=== PATIENT | male | born 2000 | race Caucasian/White ===

== ENCOUNTER 2024-02-22 12:55 | Emergency (ER) | payer MEDICARE, SELFPAY ==
[2024-02-22 13:16] VITALS: BP 133/87
--- NOTE | 2024-02-22 13:37 | ED.PDOC.TR ---
ED Provider Triage
-
Patient seen by provider in Triage?: Seen in Triage
23-year-old male with past medical history of cannabis use frequent cannabinoid hyperemesis syndrome. He claims this feels similar to previous episodes. Has been vomiting over the past few days not able to keep anything down today. Previously has
required IV medications to conclude these episodes. Still is consuming marijuana. Here patient is retching during initial triage assessment. No specific focal abdominal pain. Patient would likely benefit from IV medications for this was written
for initial treatments as well as labs.
--- NOTE | 2024-02-22 14:21 | ED.GENMED ---
History of Present Illness
<Katiuska Mcgarry PA-C - Last Filed: 02/22/24 19:04>
General
Chief Complaint: Abdominal Symptoms
Source: patient
Exam Limitations: none
Time Seen by Provider: 02/22/24 14:21
Nursing documentation reviewed up to this point in time: agreed with
Travel History
Have you had any contact with someone who has COVID-19?: No
Do you have any symptoms of coronavirus? Fever > 100 degrees, chills, cough, shortness of breath, sore throat, loss of taste or smell, muscle aches, or headache?: No
History of Present Illness
History of Present Illness:
23 y/o male with PMH of cannabinoid hyperemesis syndrome, right inguinal hernia presenting emergency department today with concerns of diffuse abdominal pain nausea and vomiting for the past 3 days. Patient present in room with girlfriend. Patient
reports that he is currently having active and avoid hyperemesis syndrome and states that how he feels right now feels exactly how he felt in the past when he had similar symptoms. Patient denies any diarrhea constipation. Patient denies any pain
in his groin, patient denies any urinary symptoms. Patient denies any fevers or chills. Other than right inguinal hernia repair, patient denies any other history of abdominal surgeries. Patient denies any chest pain or shortness of breath.
Patient states that the last time he smoked was this morning and that he is a daily marijuana user. Patient states that he stepped in a cycle where he will become more symptomatic if he does not smoke and smoking will relieve that same time seem to
make his symptoms worse. Patient states that he has been to the emergency department multiple times at [facility] for this and he will receive antiemetics and fluids and then go home.
Patient was evaluated in triage and initially given a dose of Haldol and IV fluids along with Benadryl. Patient states that he still feels persistent nausea despite this but patient is no longer dry heaving.
Review of Systems
<Katiuska Mcgarry PA-C - Last Filed: 02/22/24 19:04>
Review of Systems
All Other Systems: ROS reviewed and negative except as documented in HPI and ROS
Phy Exam
<Katiuska Mcgarry PA-C - Last Filed: 02/22/24 19:04>
Physical Exam
Physical Exam:
General: Patient is well appearing and in no acute distress; non-toxic.
Skin: Warm and dry, no rashes or lesions
Head: Normocephalic, atraumatic
Eyes: Sclera non-icteric. EOMs intact. PERRLA.
Cardiac: Regular rate and rhythm, no murmurs
Peripheral Vascular: Lower extremity swelling
Pulm: Normal respiratory effort, no wheezes, rales, rhonchi
Abdomen: Patient states that he has some mild tenderness when I palpate in his upper abdomen but no rebound tenderness, no guarding, no palpable masses
Neuro: CN II-XII intact, no focal neurologic deficits.
Psychiatric: Appropriate mood and affect.
Course
<NOEL Gomez Last Filed: 02/22/24 19:04>
Orders/Labs/Results
Orders:
Orders
02/22/24 13:15
EKG [Electrocardiogram (*1)] Urgent
Reason for Study: Chest Pain
0.9% Sodium Chloride 1000 ml [Nss] 1,000 ml IV BOLUS
Diphenhydramine [Benadryl] 25 mg IV NOW STA
Haloperidol Lactate [Haldol] 2 mg IV NOW STA
02/22/24 13:16
EKG- Treatment ONCE
02/22/24 14:20
Complete Blood Count/With Diff Urgent
Comprehensive Metabolic Panel Urgent
Lactic Acid Urgent
Lipase Urgent
02/22/24 15:15
Lorazepam [Ativan] 1 mg IV NOW STA
Ondansetron Injectable [Zofran] 4 mg IV NOW STA
Pantoprazole [Protonix IV] 40 mg IV NOW STA
02/22/24 15:16
Add On- LAB Urgent
Tests Added?: urine drug screen
02/22/24 15:22
Urine Drug Abuse Screen Urgent
Abnormal Lab Results
02/22/24
14:20
MCH 31.9 H pg
(27.0-31.0)
RDW 11.4 L %
(11.5-14.5)
Absolute Neuts (auto) 7.3 H 10^3/uL
(1.4-6.5)
Absolute Lymphs (auto) 0.5 L 10^3/uL
(1.2-3.4)
Neutrophils % 88.3 H %
(42.2-75.2)
Lymphocytes % 6.3 L %
(20.5-51.1)
Glucose 146 H mg/dl
(70-99)
Lactic Acid 2.1 H mmol/L
(0.7-2.0)
Albumin 5.1 H g/dl
(3.5-5.0)
02/22/24 14:20
02/22/24 14:20
Vital Signs
Initial and Last Documented VS:
Initial Vital Signs
Temp Pulse Resp BP Pulse Ox
98.4 F 66 18 133/87 98
02/22/24 13:16 02/22/24 13:16 02/22/24 13:16 02/22/24 13:16 02/22/24 13:16
Last Documented Vital Signs
Temp Pulse Resp BP Pulse Ox
98.4 F 86 15 112/59 99
02/22/24 13:16 02/22/24 16:00 02/22/24 16:00 02/22/24 16:00 02/22/24 16:00
<Hay Love MD - Last Filed: 02/22/24 17:09>
Orders/Labs/Results
Orders:
Orders
02/22/24 13:15
EKG [Electrocardiogram (*1)] Urgent
Reason for Study: Chest Pain
0.9% Sodium Chloride 1000 ml [Nss] 1,000 ml IV BOLUS
Diphenhydramine [Benadryl] 25 mg IV NOW STA
Haloperidol Lactate [Haldol] 2 mg IV NOW STA
02/22/24 13:16
EKG- Treatment ONCE
02/22/24 14:20
Complete Blood Count/With Diff Urgent
Comprehensive Metabolic Panel Urgent
Lactic Acid Urgent
Lipase Urgent
02/22/24 15:15
Lorazepam [Ativan] 1 mg IV NOW STA
Ondansetron Injectable [Zofran] 4 mg IV NOW STA
Pantoprazole [Protonix IV] 40 mg IV NOW STA
02/22/24 15:16
Add On- LAB Urgent
Tests Added?: urine drug screen
02/22/24 15:22
Urine Drug Abuse Screen Urgent
Abnormal Lab Results
02/22/24
14:20
MCH 31.9 H pg
(27.0-31.0)
RDW 11.4 L %
(11.5-14.5)
Absolute Neuts (auto) 7.3 H 10^3/uL
(1.4-6.5)
Absolute Lymphs (auto) 0.5 L 10^3/uL
(1.2-3.4)
Neutrophils % 88.3 H %
(42.2-75.2)
Lymphocytes % 6.3 L %
(20.5-51.1)
Glucose 146 H mg/dl
(70-99)
Lactic Acid 2.1 H mmol/L
(0.7-2.0)
Albumin 5.1 H g/dl
(3.5-5.0)
02/22/24 14:20
02/22/24 14:20
Vital Signs
Initial and Last Documented VS:
Initial Vital Signs
Temp Pulse Resp BP Pulse Ox
98.4 F 66 18 133/87 98
02/22/24 13:16 02/22/24 13:16 02/22/24 13:16 02/22/24 13:16 02/22/24 13:16
Last Documented Vital Signs
Temp Pulse Resp BP Pulse Ox
98.4 F 86 15 112/59 99
02/22/24 13:16 02/22/24 16:00 02/22/24 16:00 02/22/24 16:00 02/22/24 16:00
<NOEL Gomez Last Filed: 02/22/24 19:04>
MDM/Problems Addressed
Differential Diagnosis Includes:
Differentials include complete hyperemesis syndrome, gastroenteritis, gastritis, duodenitis,
MDM/Problems Addressed:
Abdominal pain, nausea, vomiting
Chronic conditions affecting care:
cannabinoid hyperemesis syndrome
Acute Exacerbation and/or Progression of Chronic Illness:
cannabinoid hyperemesis syndrome
<NOEL Gomez Last Filed: 02/22/24 19:04>
*Pulse Oximetry
Patient hypoxic: no
*EKG
Interpreted by ED Provider?: Yes
EKG Intrepretation Date: 02/22/24
Interpretation: abnormal
*Critical Care Note
Total Time (30-74mins, 75-104mins- exclusive of procedures): Not Applicable
Data Reviewed
Review of Other/Old Records Reveals: Records (No previous records in [facility] to review, no discharge summaries to review)
Source: patient
<NOEL Gomez Last Filed: 02/22/24 19:04>
Patient Management
Escalation/DeEscalation of care consider admission/obs:
23 y/o male with PMH of cannabinoid hyperemesis syndrome, right inguinal hernia presenting emergency department today with concerns of diffuse abdominal pain nausea and vomiting for the past 3 days. Patient states that how he feels now is
consistent with his previous episodes of cannabinoid hyperemesis syndrome. Patient states that he has a history of frequent ER visits for his condition. Patient was treated here in emergency department with IV fluids, Haldol, Zofran, Protonix, and
patient ultimately feels a lot better. Discussed marijuana cessation. No indication for CT of the abdomen pelvis. Patient stable for discharge.
ED Attending Note
<Katiuska Mcgarry PA-C - Last Filed: 02/22/24 19:04>
-
Portions of this chart may have been created with voice recognition software.� Occasional wrong word or��sound alike� substitutions may have occurred due to the inherent limitations of voice recognition software.
<Hay Love MD - Last Filed: 02/22/24 17:09>
ED Attending Note
Patient seen and examined by attending physician: Yes
ED Attending Note:
Patient presents to ED secondary to recurrent nausea, vomiting, and diarrhea over the past 3 days, after recent use of marijuana. Patient attempted to use marijuana this morning in hopes of alleviating his symptoms, which did not occur. Denies
fever or chills. Denies abdominal pain. Denies chest pain or shortness of breath. Denies trauma. Denies recent change in diet. Denies recent illness. Denies sick contact. Patient unfortunately has had number of similar symptoms in the past
secondary to marijuana use.
Physical Exam
General: mild distress, not acutely ill. afebrile.
Head: nc/at. eomi
Neck: supple. no meningeal signs.
Heart: s1/s2 regular rate and rhythm, no murmur. equal radial pulses.
Lungs: no acute respiratory distress. clear bilaterally
Abdomen: normal bowel sounds. not tender. no distention
Neuro: alert and oriented. no focal neurological deficits
Skin: no rash
Psychiatric: well kept. interactive and cooperative
Extremities: no edema. no calf tenderness.
Patient reports significant improvement symptoms after treatment, and without any further vomiting episodes after treatment. Patient feels comfortable going home at this time. Patient understands that he must stop using marijuana, as it is
triggering recurrent symptoms. Patient expresses understanding, at time of discharge, to the care of his girlfriend.
Discharge Plan
Departure
Patient Disposition: Home (Routine Discharge)
Date of Disposition: 02/22/24
Time of Disposition: 16:02
Patient with high blood pressure during this ER visit?: Yes
Discharge Problem:
Cannabinoid hyperemesis syndrome
Instructions: Nausea and vomiting in adults
Prescriptions:
New
ondansetron 4 mg Tablet,Disintegrating
4 mg PO TIDPRN Qty: 12 0RF
Referrals:
NONE,* [Family Provider] -
Stand Alone Forms: Return to Work
Activity Restrictions/Additional Instructions:
As discussed, please follow-up with your primary care physician with any further concerns. You must stop utilizing marijuana, as it likely is the culprit behind your recurrent symptoms.
Interventions
Interventions:
*Risk Screen - Suicide Last Done: 02/22/24 13:18
*General Assessment Last Done: 02/22/24 13:18
*Neglect/Abuse Screening Last Done: 02/22/24 13:18
ED- Fall Risk Assessment Last Done: 02/22/24 14:08
*ED COVID-19 Vaccine History Last Done: 02/22/24 14:08
*Nursing Disposition Last Done: 02/22/24 16:23
QS-Msbeqb-Okrcmcnuqq Assessment Last Done: 02/22/24 14:08
Discharge Date and Time
Discharge Date/Time: 02/22/24 16:20
Print Language: TURKMEN
[2024-02-22] MEDS: HALDOL 2 MG IV (14:24)
[2024-02-22] MEDS: NSS 1000 IV (14:25)
[2024-02-22] MEDS: BENADRYL 25 MG IV (14:25)
[2024-02-22 14:33] LABS: % Basophils 0.2 % (0-2); % Immature Granulocytes 0.5 % (0-0.5); % Lymphocytes 6.3 % (20.5-51.1); % Monocytes 4.7 % (1.7-9.3); % Neutrophils 88.3 % (42.2-75.2); Absolute Lymphocytes 0.5 10^3/uL (1.2-3.4); Absolute Monocytes 0.4 10^3/uL (0.1-0.6); Absolute Neutrophils 7.3 10^3/uL (1.4-6.5); Hematocrit 43.5 % (39.0-52.0); Mean Corp Hgb Conc. 36.8 g/dL (33.0-37.0); Mean Corpuscular Hgb 31.9 pg (27.0-31.0); Mean Corpuscular Volume 86.7 fL (80.0-94.0); Mean Platelet Volume 10.4 fL (7.4-10.4); Nucleated Red Blood Cells % 0 % (-); Platelet Count 248 10^3/uL (130-400); Red Blood Cell Count 5.02 10^6/uL (4.70-6.10); Red Cell Dist. Width 11.4 % (11.5-14.5); White Blood Cell Count 8.2 10^3/uL (4.8-10.8)
[2024-02-22 14:42] LABS: Lactic Acid 2.1 mmol/L (0.7-2.0)
[2024-02-22 14:52] LABS: ALT (SGPT) 26 U/L (0-50); AST (SGOT) 36 U/L (17-59); Albumin 5.1 g/dl (3.5-5.0); Alkaline Phosphatase 60 U/L (38-126); Blood Urea Nitrogen 16 mg/dl (9-20); Calcium 10.1 mg/dl (8.4-10.2); Carbon Dioxide 25 mmol/L (22-30); Chloride 100 mmol/L (98-107); Glucose 146 mg/dl (70-99); Lipase 72 U/L (23-300); Sodium 140 mmol/L (135-145); Total Protein 7.8 g/dl (6.3-8.2); eGFR > 60.00
[2024-02-22 15:00] VITALS: BP 120/61
[2024-02-22 16:00] VITALS: BP 112/59
--- NOTE | 2024-02-22 16:22 | EDRN ---
Reviewed discharge instructions with patient. Verbalized understanding. Ambulated with a steady gait to the lobby.
== END 2024-02-22 16:20 | disposition home or self-care (01) ==
LOC: EMR 12:55
PROVIDERS: Physician Assistant; EMERGENCY PHYSICIAN Emergency Medicine
DX: R11.2 Nausea with vomiting, unspecified (principal); R19.7 Diarrhea, unspecified; R10.84 Generalized abdominal pain; F12.90 Cannabis use, unspecified, uncomplicated; R03.0 Elevated blood-pressure reading, without diagnosis of hypertension; F17.200 Nicotine dependence, unspecified, uncomplicated
CPT/HCPCS: 99284; 96374; 96375; 96361; 80053; 83605; 83690; 85025; 93005

== ENCOUNTER 2024-02-22 19:50 | Emergency (ER) | payer MEDICARE, SELFPAY ==
[2024-02-22 19:54] VITALS: BP 137/99
--- NOTE | 2024-02-22 21:00 | ED.GENMED ---
History of Present Illness
General
Chief Complaint: Abdominal Symptoms
Source: patient and significant other
Exam Limitations: none
Time Seen by Provider: 02/22/24 20:42
Travel History
Have you had any contact with someone who has COVID-19?: No
Do you have any symptoms of coronavirus? Fever > 100 degrees, chills, cough, shortness of breath, sore throat, loss of taste or smell, muscle aches, or headache?: No
History of Present Illness
History of Present Illness:
This is a 23 year old male that comes in with c/o vomiting. States that he was in the ER earlier today with the same complaint. State that he went home and used the Zofran that he was given here and nothing helped. States that he has been vomiting
since he got home. States that this is the 4 time he has come to the hospital for this. States that the last time he smoked marijuana was this morning. States that they went home and throw everything out. States that his abd is sore, nausea,
vomiting and diarrhea. Denies any fever, chills, chest pain, headache, dizziness, urinary burning.
Past History
Past History
ED Past Medical History: Other (Cannabinoid hyperemesis syndrome); Negative Asthma, HTN, Hypercholesterolemia or NIDDM
ED Past Surgical History: Other (Right hernia repair)
Social History
Tobacco: Smoker
Alcohol: None
Personal: Single
Living: with family
Review of Systems
Review of Systems
All Other Systems: ROS reviewed and negative except as documented in HPI and ROS
Constitutional: Reports no symptoms; Denies fever or chills
EENT: Reports no symptoms
Respiratory: Reports trouble breathing; Denies cough
Cardiac: Reports no symptoms; Denies chest pain
ABD/GI: Reports abdominal pain, nausea, vomiting and diarrhea
: Reports no symptoms; Denies dysuria, frequency or urgency
Musculoskeletal: Reports no symptoms
Skin: Reports no symptoms
Neurological: Reports no symptoms; Denies dizzy or headache
Psychiatric: Reports no symptoms
Phy Exam
General Physical Exam
General Presentation: mild distress
General age: appears stated age
General Skin: warm and dry
General Habitus: normal
General Mental: alert
General Hydration: dry mucous membranes
ENT Exam
ENT Exam: TM's normal, pharynx normal and neck supple
Eye Exam
Eye Exam: EOMI
Cardiovascular Exam
Cardiovascular Exam: regular rate/rhythm, no edema, no murmur and normal peripheral pulses
Pulmonary Exam
Pulmonary Exam: lungs clear, no respiratory distress, no rales, chest non tender, no crackles, no rhonchi, no wheezing and no cough
Gastrointestinal Exam
Gastrointestinal Exam: normal bowel sounds, soft, no organomegaly, no pulsatile mass, non distended and tender (Generalized tenderness with palpation)
Musculoskeletal Exam
Musculoskeletal Exam: full ROM and no edema
Skin Exam
Skin Exam: normal color, warm/dry, no rash and no petechia
Psychiatric Exam
Psychiatric Exam: normal mood/affect
Course
Orders/Labs/Results
Orders:
Orders
02/22/24 20:59
0.9% Sodium Chloride 1000 ml [Nss] 1,000 ml IV BOLUS
Diphenhydramine [Benadryl] 25 mg IV NOW STA
Prochlorperazine [Compazine] 5 mg IV NOW STA
02/22/24 21:00
Ketorolac [Toradol] 30 mg IV NOW STA
Vital Signs
Initial and Last Documented VS:
Initial Vital Signs
Temp Pulse Resp BP Pulse Ox
97.9 F 72 18 137/99 100
02/22/24 19:54 02/22/24 19:54 02/22/24 19:54 02/22/24 19:54 02/22/24 19:54
Last Documented Vital Signs
Temp Pulse Resp BP Pulse Ox
97.9 F 72 18 137/99 100
02/22/24 19:54 02/22/24 19:54 02/22/24 19:54 02/22/24 19:54 02/22/24 19:54
MDM/Problems Addressed
Differential Diagnosis Includes:
Cannabinoid hyperemesis syndrome,
MDM/Problems Addressed:
This is a 23 year old male that was here earlier with vomiting. States that he went home and used the Zofran that he was given and he can't keep anything down.
Will give IV fluids. Benadryl and Compazine
Back into see patient. Patient is feeling better and tolerating ice chips. Patient has Zofran at home. Encouraged patient to start slow and only takes sips of liquid. Follow up with the PCP. Return with any concerns
Chronic conditions affecting care:
NA
Acute Exacerbation and/or Progression of Chronic Illness:
NA
*Pulse Oximetry
Patient hypoxic: no
*EKG
Interpreted by ED Provider?: NA
Rate: EKG- N/A
*Machine Wood Sander Interpretation
Rate: Machine Wood Sander- N/A
*Critical Care Note
Total Time (30-74mins, 75-104mins- exclusive of procedures): Not Applicable
ED Attending Note
-
Portions of this chart may have been created with voice recognition software.� Occasional wrong word or��sound alike� substitutions may have occurred due to the inherent limitations of voice recognition software.
Discharge Plan
Departure
Patient Disposition: Home (Routine Discharge)
Date of Disposition: 02/22/24
Time of Disposition: 22:17
Patient with high blood pressure during this ER visit?: Yes
Condition: Good
Covid-19: Not Applicable
Discharge Problem:
Nausea & vomiting
Instructions: Nausea and Vomiting, Adult (DC), BLOOD PRESSURE
Prescriptions:
No Action
ondansetron 4 mg Tablet,Disintegrating
4 mg PO TIDPRN Qty: 12 0RF
Referrals:
Alley Hoyt CRNP [Family Provider] - As needed
Activity Restrictions/Additional Instructions:
As discussed, please stay on clear liquids at first. Start with just sips of liquid while awake every 15 min. Increase your diet as tolerated. Follow up with the family doctor as needed. Use the Zofran that you have at home as needed. IF YOU HAVE
ANY OTHER CONCERNS PLEASE RETURN TO THE EMERGENCY ROOM.
Interventions
Interventions:
*Risk Screen - Suicide Last Done: 02/22/24 21:11
*General Assessment Last Done: 02/22/24 21:11
*Neglect/Abuse Screening Last Done: 02/22/24 21:11
ED- Fall Risk Assessment Last Done: 02/22/24 21:11
*ED COVID-19 Vaccine History Last Done: 02/22/24 21:11
MI-Kcghlu-Mltkqcsnhl Assessment Last Done: 02/22/24 21:11
Discharge Date and Time
Print Language: [place]
[2024-02-22 21:11] VITALS: BMI 22.8
[2024-02-22] MEDS: NSS 1000 IV (21:19)
[2024-02-22] MEDS: COMPAZINE 5 MG IV (21:20)
[2024-02-22] MEDS: TORADOL 30 MG IV (21:20)
[2024-02-22] MEDS: BENADRYL 25 MG IV (21:20)
[2024-02-22 22:30] VITALS: BP 127/82
== END 2024-02-22 22:30 | disposition home or self-care (01) ==
LOC: EMR 19:50
PROVIDERS: EMERGENCY PHYSICIAN Emergency Medicine; FAMILY PHYSICIAN Nurse Practitioner Family
DX: R11.2 Nausea with vomiting, unspecified (principal); R10.9 Unspecified abdominal pain; R19.7 Diarrhea, unspecified; R03.0 Elevated blood-pressure reading, without diagnosis of hypertension; F12.90 Cannabis use, unspecified, uncomplicated; F17.200 Nicotine dependence, unspecified, uncomplicated
CPT/HCPCS: 99284; 96374; 96375 ×2; 96361

== ENCOUNTER 2024-02-24 06:28 | Inpatient (IN) | payer MEDICARE, SELFPAY ==
--- NOTE | 2024-02-24 04:05 | ED.GENMED ---
History of Present Illness
General
Chief Complaint: Abdominal Symptoms
Source: patient and other (Girlfriend)
Exam Limitations: none
Time Seen by Provider: 02/24/24 03:57
Travel History
Have you had any contact with someone who has COVID-19?: No
Do you have any symptoms of coronavirus? Fever > 100 degrees, chills, cough, shortness of breath, sore throat, loss of taste or smell, muscle aches, or headache?: No
History of Present Illness
History of Present Illness:
This patient is a 23-year-old male who notes daily marijuana use, last used 2 days ago, who has developed symptoms of intractable nausea and nonbloody vomiting. He has been here twice in that time period, achieved relief of symptoms with IV fluids
and meds and went home. However, about an hour ago he again developed the same symptoms of intractable vomiting. His abdomen is sore from so much vomiting but he denies specific pain, he denies fever, chills, chest pain, shortness of breath, back
pain, headache, dizziness, bleeding, or other complaints.
Past History
Past History
ED Past Medical History: Other (Cannabinoid hyperemesis syndrome); Negative Asthma, HTN, Hypercholesterolemia or NIDDM
ED Past Surgical History: Other (Right hernia repair)
Social History
Tobacco: Smoker
Alcohol: None
Drug: None
Personal: Single
Living: with family
Phy Exam
Physical Exam
Physical Exam:
GENERAL: Alert , appears nauseous
EYE: pupils equal and reactive
NECK: Supple, no significant adenopathy.
ENT: o/p clr, mm dry
CARDIAC: Regular rate and rhythm .
LUNGS: Clear breath sounds bilaterally, no acute respiratory distress, no wheezes/rales/rhonchi
ABDOMEN: Soft, without focal tenderness, no r/g, no cvat
NEUROLOGICAL: Alert and oriented, no focal neuro deficits
SKIN: Warm and dry, skin intact.
MUSCULOSKELETAL: No edema, well perfused.
PSYCH: Normal and appropriate interaction.
Course
Orders/Labs/Results
Orders:
Orders
02/24/24 04:04
Complete Blood Count/No Diff Urgent
Comprehensive Metabolic Panel Urgent
Lipase Urgent
Magnesium Urgent
Comment: ADD ON
Phosphorus Urgent
Triglycerides Urgent
0.9% Sodium Chloride 500 ml [Nss] 500 ml IV BOLUS
Diphenhydramine [Benadryl] 25 mg IV NOW STA
Prochlorperazine [Compazine] 5 mg IV NOW STA
02/24/24 04:50
Haloperidol Lactate [Haldol] 5 mg IV NOW STA
02/24/24 04:59
US Abdomen Complete/Upper Urgent
Comment:
Reason For Exam: elevated lipase, n,v
02/24/24 05:00
Flush (0.9% Sodium Chloride) [Flush (Nss)] See Dose Instructions IV PER PROTOCOL
02/24/24 05:41
Add On- LAB Routine
Tests Added?: magnesium, phosphorous
0.9% Sodium Chloride 1000 ml [Nss] 1,000 ml IV BOLUS
02/24/24 05:45
Add On- LAB Urgent
Tests Added?: triglycerides
02/24/24 05:47
Ketorolac [Toradol] 15 mg IV NOW STA
Pantoprazole [Protonix IV] 40 mg IV NOW STA
02/24/24 05:51
Admit/Transfer Patient As Directed
Co-Sign Provider:
Level of Care: Inpatient admission
Assign to:: Telemetry
Physician / Group: Bernarda Honeycutt
Diagnosis: cannabis hyperemesis syndrome; pancreatitis
Reason for Telemetry: Medication for Arrhythmia
Date to Stop Telemetry: 02/26/24
Time to Stop Telemetry: 11:00
Reason for Hospitalization: cannabis hyperemesis syndrome; pancreatitis
Expected length of stay greater than two midnights?: Yes
ELOS- Estimated Length of Stay in days: 3
I certify the patient meets the requirements for IP care: Yes
02/24/24 05:52
Code Status As Directed
Resuscitation Status: Full Code
02/24/24 05:54
0.9% Sodium Chloride [Nss (Preservative Free)] 10 ml IV NOW STA
02/24/24 Breakfast
NPO
Allow oral meds: Yes
Allow clear liquids: No
Potassium Chloride [KCl] 40 meq 0.9% Sodium Chloride 250 ml [Nss] 250 ml IV ONCE
02/24/24 07:03
0.9% Sodium Chloride 1000 ml [Nss] 1,000 ml IV 150 mls/hr
Acetaminophen [Tylenol] 650 mg PO Q4HPRN PRN
Capsaicin [Zostrix 0.025% Cream] See Dose Instructions TOPICAL ONCE ONE
02/24/24 07:03
Consult Gastroenterology [GASTROINTESTINAL CONSULT] Routine
Consulting Provider: Giovana Ludwig
Was physician already notified: Yes
Activity As Directed
Activity Level: As Tolerated
Vital Signs As Directed
Frequency: Per unit guidelines
DX Deep Vein Thrombosis Video Routine
02/24/24 10:00
Prochlorperazine [Compazine] 10 mg IV Q6HPRN PRN
02/24/24 11:53
Potassium Routine
02/24/24 13:00
Ketorolac [Toradol] 10 mg IV Q6HPRN PRN
02/24/24 18:00
Enoxaparin Sodium [Lovenox] 40 mg SC QPM
02/26/24 11:00
DC Protocol for Telemetry ONCE
Abnormal Lab Results
02/24/24
04:04
WBC 4.6 L 10^3/uL
(4.8-10.8)
RBC 4.56 L 10^6/uL
(4.70-6.10)
Hct 38.0 L %
(39.0-52.0)
MCH 31.6 H pg
(27.0-31.0)
MCHC 37.9 H g/dL
(33.0-37.0)
Potassium 2.9 L D mmol/L
(3.5-5.1)
Glucose 113 H mg/dl
(70-99)
Lipase 3661 H* U/L
(23-300)
02/24/24 04:04
02/24/24 04:04
Vital Signs
Initial and Last Documented VS:
Initial Vital Signs
Temp Pulse Resp Pulse Ox
98.7 F 63 18 99
02/24/24 03:36 02/24/24 03:36 02/24/24 03:36 02/24/24 03:36
Last Documented Vital Signs
Temp Pulse Resp BP Pulse Ox
98.0 F 69 18 117/76 98
02/24/24 19:29 02/24/24 19:29 02/24/24 19:29 02/24/24 19:29 02/24/24 19:29
*Critical Care Note
Total Time (30-74mins, 75-104mins- exclusive of procedures): Not Applicable
Update Note
Update Note:
Patient presents to the Emergency Department with _repeated vomiting
Number and Complexity of Problems Addressed at the Encounter
� Chronic conditions affecting care:
� Acute Exacerbation and/or Progression of Chronic Illness:
� Differential Diagnosis includes: But not limited to CHS, gastroenteritis, pancreatitis, etc.
Amount and/or Complexity of Data to be Reviewed and Analyzed
� I performed an independent evaluation of and my interpretation is:
EKG:
CT:
Xrays: Ultrasound pending
Laboratory Studies: Lipase noted to be elevated, this is a change from just 2 days ago, mild hypokalemia, LFTs are normal
Other:
� Review of other/old records reveals: Patient was here twice this week with similar symptoms resolved with IV fluids and meds
� Clinical information was obtained by an independent historian:
� Prescriptions/Medications Considered but not given:
� Further testing considered but not performed:
Risk of Complications and/or Morbidity or Mortality of Patient Management
� Social determinants of health affecting care:
� Discussion with other providers (PCP, Hospitalists, Consultants, etc):
� Escalation of care including admission/observation vs risk of discharge considered: 5:02 AM medications have not yet helped patient, he continues to retch. I have added Haldol. Surprisingly, his LFTs are elevated. Patient
has a history of heavy alcohol use in the past but in the last 2 years states he drinks no more than once a month. No history of gallstones. Ultrasound pending. Case discussed with Dr. Honeycutt for admission. Potassium replaced.
ED Attending Note
-
Portions of this chart may have been created with voice recognition software.� Occasional wrong word or��sound alike� substitutions may have occurred due to the inherent limitations of voice recognition software.
Discharge Plan
Departure
Patient Disposition: Admit
Date of Disposition: 02/24/24
Time of Disposition: 05:03
Admit to: Telemetry
Admit to doctor: arti
Presentation/result/management discussed w/ accepting MD/DO: Hospitalist
Condition: Fair
Discharge Problem:
Acute pancreatitis
Interventions
Interventions:
*Risk Screen - Suicide Last Done: 02/24/24 14:18
*General Assessment Last Done: 02/24/24 03:36
*Neglect/Abuse Screening Last Done: 02/24/24 03:36
*ED COVID-19 Vaccine History Last Done: 02/24/24 14:18
*Nursing Disposition Last Done: 02/24/24 15:00
GU-Xjnrzk-Eivhapovlc Assessment Last Done: 02/24/24 04:00
Discharge Date and Time
Discharge Date/Time: 02/24/24 15:00
[2024-02-24] MEDS: BENADRYL 25 MG IV (04:11)
[2024-02-24] MEDS: COMPAZINE 5 MG IV (04:12)
[2024-02-24] MEDS: NSS 500 IV (04:13)
[2024-02-24 04:35] LABS: Hemoglobin 14.4 g/dL (13.0-18.0); Mean Corp Hgb Conc. 37.9 g/dL (33.0-37.0); Mean Corpuscular Hgb 31.6 pg (27.0-31.0); Mean Corpuscular Volume 83.3 fL (80.0-94.0); Mean Platelet Volume 10.1 fL (7.4-10.4); Platelet Count 201 10^3/uL (130-400); Red Blood Cell Count 4.56 10^6/uL (4.70-6.10); Red Cell Dist. Width 11.6 % (11.5-14.5); White Blood Cell Count 4.6 10^3/uL (4.8-10.8)
[2024-02-24 04:41] LABS: ALT (SGPT) 23 U/L (0-50); AST (SGOT) 32 U/L (17-59); Albumin 4.6 g/dl (3.5-5.0); Alkaline Phosphatase 54 U/L (38-126); Blood Urea Nitrogen 10 mg/dl (9-20); Calcium 9.7 mg/dl (8.4-10.2); Carbon Dioxide 25 mmol/L (22-30); Chloride 104 mmol/L (98-107); Glucose 113 mg/dl (70-99); Potassium 2.9 mmol/L (3.5-5.1); Sodium 142 mmol/L (135-145); eGFR > 60.00
[2024-02-24 04:53] LABS: Lipase 3661 U/L (23-300)
[2024-02-24] MEDS: HALDOL 5 MG IV (05:02)
[2024-02-24 05:06] VITALS: BMI 22.4
[2024-02-24 05:07] VITALS: BP 144/96
[2024-02-24 05:08] VITALS: BP 144/96
--- NOTE | 2024-02-24 05:14 | HPS.HSE ---
Family Physician
-
Family Physician: Alley Hoyt
Chief Complaint
-
abdominal pain
History of Present Illness
Mr. Porfirio Grimes is a 23 yo man with hx cannabinoid hyperemesis syndrome, daily cannabis use, recent ER visit x 2 on 02/21 for diffuse abdominal pain, nausea and vomiting 2/2 cannabis hyperemesis syndrome represents today with recurrent
intractable vomiting.
Patient is seen at bedside, he is somnolent post Haldol, finally receiving some relief from nausea and vomiting. Girlfriend at bedside helps provide history. Patient has had multiple ER visits and hospital stays for cannabis hyperemesis syndrome.
He has had periods of sobriety with relief of abdominal symptoms but states he struggles mentally. He recently tried to cut back for a new job and these symptoms developed. He had some relief of symptoms after ER visits on 02/21 then had return of
pain followed by significant vomiting earlier this morning. Vomit is bile. No blood. No black or bloody stools.
No fevers/chills. No chest pain. He denies drinking alcohol. Last cannabis use was 2 days ago.
Medical History
Past Medical History
Past Medical History: Reports Other (cannabinoid hyperemesis syndrome, daily cannabis use)
Past Surgical History: Reports None
Social History
Drug: Marijuana
Family History
Family History: Not pertinent
Allergies / Home Medications
Allergies reflects when Allergies were last updated in [facility] [employer].
Home Medications with original date entered in [employer]
Allergy/Medication List:
Allergies
Allergy/AdvReac Type Severity Reaction Status Date / Time
No Known Allergies Allergy Verified 02/22/24 14:07
Home Medications
ondansetron 4 mg disintegrating tablet 4 mg PO TIDPRN nausea/vomiting #12 tabs 02/22/24
Review of Systems
-
History Source: Patient
A 12 point ROS was completed and negative except as noted: Yes
Physical Exam
Vital Signs
Vital Signs
Temp Pulse Resp BP Pulse Ox
98.7 F 56 18 144/96 96
02/24/24 03:36 02/24/24 05:08 02/24/24 03:36 02/24/24 05:08 02/24/24 05:08
Physical Exam
General: Other (patient appears somnolent post Haldol, uncomfortable )
HEENT: PERRLA
Respiratory: Clear; No Wheezes
Cardiac: S1/S2 and Regular Rhythm
GI: Soft and Other (tenderness epigastric region without rebound or guarding)
Musculoskeletal: No Edema
Skin: Warm and Dry; No Rash
Neuro: AO x 3
Psych: Calm
Laboratory Results
-
02/24/24 04:04
02/24/24 04:04
Laboratory Results
Total Bilirubin 1.0 mg/dl (0.2-1.3) 02/24/24 04:04
AST 32 U/L (17-59) 02/24/24 04:04
ALT 23 U/L (0-50) 02/24/24 04:04
Alkaline Phosphatase 54 U/L (38-126) 02/24/24 04:04
Lipase 3661 U/L (23-300) H* 02/24/24 04:04
Data Reviewed
-
Diagnostic Radiology: Report Reviewed by me
Lab Data: Labs Reviewed by me
Impression/Plan
-
Mr. Porfirio Grimes is a 23 yo man with hx cannabinoid hyperemesis syndrome, daily cannabis use, recent ER visit x 2 on 02/21 for diffuse abdominal pain, nausea and vomiting 2/2 cannabis hyperemesis syndrome represents today with recurrent
intractable vomiting.
Triage VS: T 98.7, P 63, RR 18, SpO2 99%
LABS: WBC 4.6, HG 14.4, PLT 201, Na 142, K+ 2.9, CO2 25, Cr 1.1, Glucose 113
MAR: benadryl, haldol, IVF, Compazine, 40mEq IV K
Nausea/Vomiting/Abdominal pain
Cannabinoid Hyperemesis Syndrome
Acute Pancreatitis with Elevated Lipase 3661
-admit to med/surg
-aggressive IVF
-monitor electrolytes
-s/p IV Haldol in ER
-IV Toradol, IV Zofran PRN
-trial topical Capsaicin
-cannabis cessation education
-F/U US
-F/U TG level
-GI consult
Hypokelamia
-repleted with 40meQ IV in ER, repeat at noon
-add on Mag
DVT PPx lovenox subQ
FULL CODE
[2024-02-24] MEDS: KCL 270 MEQ IV (05:41)
[2024-02-24] MEDS: NSS 1000 IV ×2 (05:45→09:24)
[2024-02-24 06:26] LABS: Magnesium 1.7 mg/dl (1.6-2.3); Phosphorus 2.5 mg/dl (2.5-4.5); Triglycerides 92 mg/dl (10-149)
[2024-02-24 06:42] VITALS: BP 154/92
[2024-02-24] MEDS: PROTONIX IV 40 MG IV (06:46)
[2024-02-24] MEDS: TORADOL 15 MG IV (06:46)
[2024-02-24 07:34] VITALS: BP 116/101
[2024-02-24] MEDS: MORPHINE SULFATE 1 MG IV (09:23)
--- NOTE | 2024-02-24 14:55 | CON.GI ---
Addendum entered and electronically signed by Giovana Ludwig MD 02/24/24 20:23:
Patient left AMA.
Patient seen by SHAGGER only
Original Note:
Consultation
-
Date/Time Consultation Requested: 02/24/24
Date/Time Consultation Performed: 02/24/24 @ 15:30
Requesting Provider: Dr. Honeycutt
Performing Provider: SAM Santana; Dr. Giovana Ludwig
Reason for Consultation: intractable nausea/vomiting, abdominal pain, cannabis hyperemesis
Medical History
Chief Complaint / HPI
Chief Complaint: abdominal pain
History of Present Illness:
The pt is a 23 yo male with a PMH significant for daily cannabis use, cannabis hyperemesis syndrome with recurrent ER evaluations in the past, who presented to the ER with complaints of abdominal pain. Upon review of records, he had 2 presentations
to the ER on 02/21 for abdominal pain, nausea, and vomiting. This was suspected to be secondary to cannabis hyperemesis. He was treated with IV fluids, Benadryl, and IV Compazine and did have improvement in symptoms. He was advised to start with
small amounts of liquids, and follow-up with his PCP. If he had recurrent symptoms he was advised to come back to the emergency room. The patient remains very nauseated in the position therefore his girlfriend who is at the bedside provides
the history of the present illness. She reports that he has had numerous evaluations over the last few years and various emergency room's due to heavy marijuana use. She notes that historically he has smoked marijuana sometimes up to 3 and 4 times
a day. He has been able to stop in the past but has recurrent use and this leads to recurrent symptoms. His girlfriend reports that he has not used marijuana in 4 days but continues to have ongoing symptoms. She notes that he has had a very poor
appetite and has been losing weight. She reports this is typical when he has these episodes. She notes he had been vomiting profusely at home with numerous episodes, which then led to dry heaving after his stomach had been empty. She denies any
vomiting of blood. The patient notes he does have ongoing abdominal pain generalized throughout his abdomen. His girlfriend notes that typically the symptoms improved with hot showers but this did not help this time as he continued to vomit
despite the hot shower. He also has been having diarrhea recently as well. This is non-bloody. He denies any significant alcohol use currently, although he has drank heavy in the past. There is no other reported drug use. There have been no new
medications or recent antibiotics. He has no known history of gallbladder disease. He is overall healthy person, exercises, and eats well when he is not experiencing these episodes. His girlfriend notes he may have had an endoscopy sometime last
year but she is unsure and the patient is unable to confirm. Routine labs in the ER showed a lipase of 3661, potassium 2.9, LFTs within normal limits, triglyceride level within normal limit. He underwent an ultrasound of the abdomen which showed no
acute findings or gallstones to suggest biliary etiology. He was made n.p.o., started on IV antiemetics, IV fluids, and admitted for further evaluation by GI.
Past Medical History
Past Medical History: Other (Cannabis hyperemesis syndrome)
Past Surgical History: Other (inguinal hernia repair)
Social History
Tobacco: Non-Smoker
Alcohol: Occasional
Drug: Marijuana
Personal: Other (Girlfriend)
Living: Other (with girlfriend)
Employment: Employed
Family History
Family History: Reviewed & Not Pertinent
Allergies / Home Medications
Allergy/AdvReac Type Severity Reaction Status Date / Time
No Known Allergies Allergy Verified 02/22/24 14:07
�Medication �Instructions �Recorded
ondansetron 4 mg disintegrating 4 mg PO TIDPRN nausea/vomiting #12 02/22/24
tablet tabs
Review of Systems
-
History Source: Patient and Family
Constitutional: Reports Weight Loss and Sleep Disturbance
EENT: Reports No Symptoms
Respiratory: Reports No Symptoms
Cardiac: Reports No Symptoms
Abdomen/GI: Reports Abdominal Pain, Nausea, Vomiting and Diarrhea
: Reports No Symptoms
Musculoskeletal: Reports No Symptoms
Skin: Reports No Symptoms
Neurological: Reports No Symptoms
Vital Signs
Temp Pulse Resp BP Pulse Ox
98 F 54 17 116/101 97
02/24/24 07:35 02/24/24 07:31 02/24/24 07:31 02/24/24 07:34 02/24/24 11:45
Physical Exam
Exam
General: Well Developed and Other (Ill appearing, eyes closed, quiet)
HEENT: Normocephalic, Anicteric and Atraumatic
Respiratory: Clear
Cardiac: S1/S2 and Regular Rhythm
Breast: N/A
GI: Soft, Non Distended, Tender (diffusely tender) and Other (hypoactive bowel sounds)
Rectal: Deferred by Provider
Musculoskeletal: No Edema
Skin: Warm, Dry and Other (pale appearing)
Neuro: Awake and Alert
Psych: Calm
Results
WBC 4.6 10^3/uL (4.8-10.8) L 02/24/24 04:04
Hgb 14.4 g/dL (13.0-18.0) 02/24/24 04:04
Hct 38.0 % (39.0-52.0) L 02/24/24 04:04
MCV 83.3 fL (80.0-94.0) 02/24/24 04:04
Plt Count 201 10^3/uL (130-400) 02/24/24 04:04
Sodium 142 mmol/L (135-145) 02/24/24 04:04
Potassium 4.0 mmol/L (3.5-5.1) D 02/24/24 11:53
Chloride 104 mmol/L (98-107) 02/24/24 04:04
Carbon Dioxide 25 mmol/L (22-30) 02/24/24 04:04
BUN 10 mg/dl (9-20) 02/24/24 04:04
Creatinine 1.1 mg/dL (0.7-1.3) 02/24/24 04:04
Calcium 9.7 mg/dl (8.4-10.2) 02/24/24 04:04
Total Bilirubin 1.0 mg/dl (0.2-1.3) 02/24/24 04:04
AST 32 U/L (17-59) 02/24/24 04:04
ALT 23 U/L (0-50) 02/24/24 04:04
Alkaline Phosphatase 54 U/L (38-126) 02/24/24 04:04
Lipase 3661 U/L (23-300) H* 02/24/24 04:04
Diagnostic Image Results:
02/24/24 US abdomen: No sonographic evidence for cholelithiasis, acute cholecystitis, or biliary obstruction.
Prior GI Procedures:
EGD: Unknown
Colonoscopy: none
Assessment / Plan
-
The pt is a 23 yo male with a PMH significant for daily cannabis use, cannabis hyperemesis syndrome with recurrent ER evaluations, who presented to the ER with complaints of abdominal pain found to have an elevated lipase consistent with
pancreatitis. Also with symptoms suspicious for cannabis hyperemesis syndrome. He has had numerous ER evaluations, per his girlfriend, for cannabis hyperemesis syndrome. He has been able to stop in the past but has recurrent use up to 3 and 4 times
a day. He has not smoked marijuana in 4 days but continues with nausea although his vomiting has subsided. He continues with ongoing abdominal pain although is resting comfortably. He has made n.p.o. and started on IV fluids. Ultrasound imaging
did not reveal any biliary etiology such as gallstones or choledocholithiasis. His LFTs are normal. He also had reportedly been having diarrhea although his p.o. intake has been very reduced per his girlfriend. There have been no fevers.
Problem list:
-intractable nausea, vomiting, abdominal pain
-Pancreatitis
-daily cannabis use
-hypokalemia
Recommendations:
-Etiology of symptoms likely secondary to cannabis hyperemesis syndrome versus pancreatitis versus less likely obstructive process versus other.
-If he continues with abdominal pain, would consider CT imaging given pancreatitis for further evaluation. There is no biliary etiology, reported alcohol use, new medications/recent antibiotics, or elevated triglycerides to explain this. May be
secondary to marijuana use.
-Repeat lipase in the a.m. along with LFTs
-Advised on marijuana cessation as this will likely continue to recur if he continues use
-Advised on alcohol avoidance given concern for possible pancreatitis
-Continue aggressive IV fluids until symptoms improve
-Continue n.p.o. for now, but once he is feeling better can start on clear liquid diet
-Will add IgG4
-PRN antiemetics as per hospitalist
-Will add PPI IV once daily
-Monitor electrolytes and replete as needed
-Consider EGD if symptoms do not resolve/imaging is unrevealing as PUD can also cause these symptoms and elevation of lipase
-Further management pending clinical course
-
-
Thank you for consultation and allowing me to participate in the patient's care. Please call the [facility] GI physician during the after hours with any questions or concerns.
[2024-02-24 15:01] VITALS: BP 157/96
--- NOTE | 2024-02-24 15:03 | W.PN.UPDATE ---
Update Note
Progress Note Update
Non-billable addendum
remains nauseated, NPO
dry heaves
last vomit before 7 AM per GF at bedside
Assessment:
Nausea/Vomiting/Abdominal pain
Cannabinoid Hyperemesis Syndrome
Acute Pancreatitis with Elevated Lipase 3661
- US: No sonographic evidence for cholelithiasis, acute cholecystitis, or biliary obstruction.
- continue aggressive IVF, switch LR @ 150/hr
- repeat Lipase level in AM
- NPO
- prn pain control, anti-emetics
- trial topical Capsaicin
- cannabis cessation education
- GI to evaluate
Hypokalemia
- resolved with IV repletion
DVT ppx: Lovenox
Code: Full
[2024-02-24] MEDS: NSS IV (15:23)
[2024-02-24] MEDS: LR 1000 IV (15:24)
[2024-02-24 15:40] VITALS: BMI 22.6
[2024-02-24] MEDS: LOVENOX 40 MG SC (17:46)
--- NOTE | 2024-02-24 19:11 | PTCARENOTE ---
Pt states he wants to leave AMA. Chavo VARGAS made aware.
[2024-02-24 19:29] VITALS: BP 117/76
--- NOTE | 2024-02-24 19:41 | W.PN.UPDATE ---
Update Note
Progress Note Update
Patient requested to leave AMA. Patient is alert and oriented x3 able to make his own decision, his girlfriend was present in the room as well. Risk was discussed with the patient but he decided to leave. AMA Form signed and kept in the chart.
--- NOTE | 2024-02-24 19:44 | PTCARENOTE ---
Chavo VARGAS spoke with pt and AMA paper signed. LOCATED [facility]IN [facility] IV access d/c'd and pt d/c'd w/ S.O. with all belongings.
[2024-02-28 11:13] LABS: IgG Subclass 4 20 mg/dL (1-123)
== END 2024-02-24 19:52 | disposition left against medical advice (07) | DRG 440 ==
LOC: 4 WEST ACU 06:28
PROVIDERS: Nurse Practitioner Family; ADMITTING PHYSICIAN Student in an Organized Health Care Education/Training Program; ATTENDING PHYSICIAN Internal Medicine; CONSULT PHYSICIAN Internal Medicine Gastroenterology; EMERGENCY PHYSICIAN Emergency Medicine; FAMILY PHYSICIAN Nurse Practitioner Family
DX: K85.90 Acute pancreatitis without necrosis or infection, unspecified (principal); F12.90 Cannabis use, unspecified, uncomplicated; E87.6 Hypokalemia; F17.200 Nicotine dependence, unspecified, uncomplicated
CPT/HCPCS: 76700; 80053; 82787; 83690; 83735; 84100; 84132; 84478; 85027; 96361; 96374; 96375; 99284

== ENCOUNTER 2024-02-27 13:52 | Emergency (ER) | payer MEDICARE, SELFPAY ==
[2024-02-27 13:54] VITALS: BP 153/124
--- NOTE | 2024-02-27 15:27 | ED.GENMED ---
History of Present Illness
General
Chief Complaint: Abdominal Symptoms
Source: patient and other (Girlfriend at bedside)
Exam Limitations: none
Time Seen by Provider: 02/27/24 14:56
Nursing documentation reviewed up to this point in time: agreed with
Travel History
Have you had any contact with someone who has COVID-19?: No
Do you have any symptoms of coronavirus? Fever > 100 degrees, chills, cough, shortness of breath, sore throat, loss of taste or smell, muscle aches, or headache?: No
History of Present Illness
History of Present Illness:
23-year-old male admitted to the hospital on 02/23 for cannabinoid hyperemesis and pancreatitis. He was supposed to stay overnight for serial lipase checks but he signed himself ou AMA.
Patient states he felt well yesterday, ate and drank and was feeling good. Today however at 10 AM he had a breakfast sandwich and started vomiting again and had several significant episodes. Presents now with nausea, epigastric pain. Denies f/c/d.
States he last smoked marijuana a week ago
Past History
Past History
ED Past Medical History: Other (Cannabinoid hyperemesis syndrome); Negative Asthma, HTN, Hypercholesterolemia or NIDDM
ED Past Surgical History: Other (Right hernia repair)
Social History
Tobacco: Smoker
Alcohol: None
Drug: Marijuana
Personal: Single
Living: with family
Review of Systems
Review of Systems
Allergies reviewed?: Yes
All Other Systems: ROS reviewed and negative except as documented in HPI and ROS
Constitutional: Denies fever
Respiratory: Denies trouble breathing
Cardiac: Denies chest pain
ABD/GI: Reports abdominal pain, nausea and vomiting; Denies diarrhea
Musculoskeletal: Reports no symptoms
Skin: Reports no symptoms
Neurological: Reports no symptoms
Phy Exam
Physical Exam
Physical Exam:
GENERAL: No acute distress. A&Ox3.
CONSTITUTIONAL: Afebrile.
EYES: PERRL, conjunctivae normal
ENMT: moist mucus membranes, Pharynx nl
RESPIRATORY: Regular respirations, nonlabored, lungs clear.
CARDIOVASCULAR: Regular rate and rhythm, no murmurs, no rubs.
GI: Soft, mild epigastric tenderness, normal BS
MUSCULOSKELETAL: Moves with ease. Well perfused.
SKIN: Warm, dry, pink
PSYCH: Mildly anxious mood and affect. Well kept, interactive and appropriate
NEUROLOGIC: Awake, alert and oriented. No focal neurological deficits
Course
Orders/Labs/Results
Orders:
Orders
02/27/24 15:12
0.9% Sodium Chloride 1000 ml [Nss] 1,000 ml IV BOLUS
02/27/24 15:25
Diphenhydramine [Benadryl] 50 mg IV NOW STA
Prochlorperazine [Compazine] 10 mg IV NOW STA
02/27/24 16:03
Complete Blood Count/With Diff Urgent
Comprehensive Metabolic Panel Urgent
Lipase Urgent
Abnormal Lab Results
02/27/24
16:03
MCH 31.4 H pg
(27.0-31.0)
RDW 11.4 L %
(11.5-14.5)
MPV 10.5 H fL
(7.4-10.4)
Abs Immat Gran (auto) 0.1 H 10^3/uL
(0-0.05)
Absolute Neuts (auto) 6.7 H 10^3/uL
(1.4-6.5)
Absolute Lymphs (auto) 1.1 L 10^3/uL
(1.2-3.4)
Immature Gran % 0.6 H %
(0-0.5)
Neutrophils % 80.2 H %
(42.2-75.2)
Lymphocytes % 13.6 L %
(20.5-51.1)
Potassium 3.4 L mmol/L
(3.5-5.1)
Chloride 97 L mmol/L
(98-107)
Glucose 109 H mg/dl
(70-99)
Calcium 10.3 H mg/dl
(8.4-10.2)
Albumin 5.1 H g/dl
(3.5-5.0)
Lipase 380 H U/L
(23-300)
02/27/24 16:03
02/27/24 16:03
Vital Signs
Initial and Last Documented VS:
Initial Vital Signs
Temp Pulse Resp BP Pulse Ox
97.4 F 93 18 153/124 99
02/27/24 13:54 02/27/24 13:54 02/27/24 13:54 02/27/24 13:54 02/27/24 13:54
Last Documented Vital Signs
Temp Pulse Resp BP Pulse Ox
97.4 F 62 16 107/57 96
02/27/24 13:54 02/27/24 16:09 02/27/24 16:09 02/27/24 17:00 02/27/24 17:30
MDM/Problems Addressed
Differential Diagnosis Includes:
Cannabinoid hyperemesis, pancreatitis
MDM/Problems Addressed:
23-year-old male admitted to the hospital on 02/23 for cannabinoid hyperemesis and pancreatitis. He was supposed to stay overnight for serial lipase checks but he signed himself ou AMA.
Patient states he felt well yesterday, ate and drank and was feeling good. Today however at 10 AM he had a breakfast sandwich and started vomiting again and had several significant episodes. Presents now with nausea, epigastric pain. Denies f/c/d.
States he last smoked marijuana a week ago
4:30 PM
After IV fluids and medications, patient is resting quietly with eyes closed
5:30 pm
Pt feeling much better, no further vomiting, Lipase significantly improved
Pt requests to go home.
*Critical Care Note
Total Time (30-74mins, 75-104mins- exclusive of procedures): Not Applicable
ED Attending Note
-
Portions of this chart may have been created with voice recognition software.� Occasional wrong word or��sound alike� substitutions may have occurred due to the inherent limitations of voice recognition software.
Discharge Plan
Departure
Patient Disposition: Home (Routine Discharge)
Date of Disposition: 02/27/24
Time of Disposition: 17:53
Patient with high blood pressure during this ER visit?: No
Condition: Good
Discharge Problem:
Nausea & vomiting
Instructions: Nausea and Vomiting, Adult (DC)
Prescriptions:
New
promethazine 25 mg suppository
25 mg MO Q6H PRN (Reason: nausea and vomiting) Qty: 6 0RF
No Action
ondansetron 4 mg Tablet,Disintegrating
4 mg PO TIDPRN Qty: 12 0RF
Referrals:
UNKNOWN - PT DOES,NOT KNOW [Unknown Provider] -
Activity Restrictions/Additional Instructions:
As we discussed, I sent a prescription to your pharmacy for Phenergan suppositories to use 1 every 6 hours as needed for nausea and vomiting.
Your Lipase has come down nicely: was 3661, now 380
Drink plenty of water/fluid
Interventions
Interventions:
*Risk Screen - Suicide Last Done: 02/27/24 13:54
*General Assessment Last Done: 02/27/24 16:00
*Neglect/Abuse Screening Last Done: 02/27/24 13:54
ED- Fall Risk Assessment Last Done: 02/27/24 17:55
*ED COVID-19 Vaccine History Last Done: 02/27/24 13:54
*Nursing Disposition Last Done: 02/27/24 17:55
PC-Fwwjva-Glddlvverq Assessment Last Done: 02/27/24 16:08
Discharge Date and Time
Discharge Date/Time: 02/27/24 17:55
Print Language: GREEK
[2024-02-27] MEDS: NSS 1000 IV (15:53)
[2024-02-27] MEDS: BENADRYL 50 MG IV (15:53)
[2024-02-27] MEDS: COMPAZINE 10 MG IV (15:53)
[2024-02-27 16:01] VITALS: BMI 22.3
[2024-02-27 16:07] VITALS: BP 142/87
[2024-02-27 16:09] VITALS: BP 142/87
[2024-02-27 16:28] LABS: ALT (SGPT) 24 U/L (0-50); AST (SGOT) 36 U/L (17-59); Albumin 5.1 g/dl (3.5-5.0); Alkaline Phosphatase 49 U/L (38-126); Blood Urea Nitrogen 14 mg/dl (9-20); Calcium 10.3 mg/dl (8.4-10.2); Carbon Dioxide 27 mmol/L (22-30); Chloride 97 mmol/L (98-107); Estimated Creatinine Clearance 97 ml/min; Glucose 109 mg/dl (70-99); Potassium 3.4 mmol/L (3.5-5.1); Sodium 140 mmol/L (135-145); Total Bilirubin 1.2 mg/dl (0.2-1.3); Total Protein 7.7 g/dl (6.3-8.2); eGFR > 60.00
[2024-02-27 16:40] LABS: Lipase 380 U/L (23-300)
[2024-02-27 17:00] VITALS: BP 107/57
[2024-02-27 17:08] LABS: % Basophils 0.4 % (0-2); % Immature Granulocytes 0.6 % (0-0.5); % Lymphocytes 13.6 % (20.5-51.1); % Monocytes 5.2 % (1.7-9.3); % Neutrophils 80.2 % (42.2-75.2); Absolute Immature Granulocytes 0.1 10^3/uL (0-0.05); Absolute Lymphocytes 1.1 10^3/uL (1.2-3.4); Absolute Monocytes 0.4 10^3/uL (0.1-0.6); Absolute Neutrophils 6.7 10^3/uL (1.4-6.5); Hematocrit 44.3 % (39.0-52.0); Hemoglobin 16.2 g/dL (13.0-18.0); Mean Corp Hgb Conc. 36.6 g/dL (33.0-37.0); Mean Corpuscular Hgb 31.4 pg (27.0-31.0); Mean Corpuscular Volume 85.9 fL (80.0-94.0); Mean Platelet Volume 10.5 fL (7.4-10.4); Nucleated Red Blood Cells % 0 % (-); Platelet Count 278 10^3/uL (130-400); Red Blood Cell Count 5.16 10^6/uL (4.70-6.10); Red Cell Dist. Width 11.4 % (11.5-14.5); White Blood Cell Count 8.3 10^3/uL (4.8-10.8)
== END 2024-02-27 17:55 | disposition home or self-care (01) ==
LOC: EMR 13:52
PROVIDERS: Registered Nurse; EMERGENCY PHYSICIAN Emergency Medicine
DX: R11.2 Nausea with vomiting, unspecified (principal); R10.13 Epigastric pain; F17.200 Nicotine dependence, unspecified, uncomplicated; F12.90 Cannabis use, unspecified, uncomplicated
CPT/HCPCS: 99284; 96374; 96375; 96361; 80053; 83690; 85025